=== PATIENT | female | born 2000 | race Hispanic/Latino ===

== ENCOUNTER 2021-05-10 14:28 | Emergency (ER) | payer OTHER ==
[2021-05-10] MEDS ORDERED: Ketorolac Tromethamine 30 MG/ML VIAL ONE (16:51)
== END 2021-05-10 17:24 | disposition home or self-care (01) ==
LOC: ERS 14:28
DX: S93.402A Sprain of unspecified ligament of left ankle, initial encounter (principal); Z79.899 Other long term (current) drug therapy; X50.9XXA Other and unspecified overexertion or strenuous movements or postures, initial encounter
CPT/HCPCS: 96372; J1885